=== PATIENT | female | born 1965 | race Caucasian/White ===

== ENCOUNTER 2016-11-24 06:55 | Outpatient (CLI) ==
[2016-11-24 09:16] LABS: BASOPHILS # (AUTO) 0.1 K/uL (0-0.2); BASOPHILS % (AUTO) 1.5 % (0.0-3.0); EOSINOPHILS # (AUTO) 0.1 K/ul (0.0-0.7); EOSINOPHILS % (AUTO) 2.6 % (0.0-7.0); HEMATOCRIT 38.3 % (37.0-47.0); HEMOGLOBIN 13.2 g/dl (12.0-16.0); IMMATURE GRANULOCYTE % (AUTO) 0.4 % (0.0-5.0); LYMPHOCYTES # (AUTO) 1.4 K/uL (0.60-3.4); LYMPHOCYTES % (AUTO) 29.9 (10.0-50.0); MEAN CORPUSCULAR HGB CONC 34.5 (31.8-35.4); MEAN CORPUSCULAR VOLUME 89.9 fl (81.0-99.0); MONOCYTES # (AUTO) 0.3 K/uL (0.4-2.0); MONOCYTES % (AUTO) 6.8 (0-10); NEUTROPHILS # (AUTO) 2.8 K/ul (2.0-6.9); NEUTROPHILS % (AUTO) 58.8; PLATELET COUNT 247 10^3/uL (140-440); RED BLOOD COUNT 4.26 10^6/ul (4.20-5.40); WHITE BLOOD COUNT 4.69 K/ul (4.6-10.2)
[2016-11-24 09:53] LABS: ALBUMIN 4.1 g/dL (3.4-5.0); ALBUMIN/GLOBULIN RATIO 1.28; ANION GAP 12.7; BILIRUBIN,TOTAL 0.52 mg/dL (0.00-1.20); BUN/CREATININE RATIO 13.79; CALCIUM 9.7 mg/dL (8.2-10.2); CHOL/HDL RATIO 3.3 (4.5-5.5); CREATININE 0.87 mg/dL (0.60-1.30); POTASSIUM 4.7 mmol/L (3.5-5.10); TOTAL PROTEIN 7.3 g/dL (6.4-8.2)
== END 2016-11-24 06:56 | disposition home or self-care (01) ==
LOC: CAR 06:55
PROVIDERS: ATTEND Internal Medicine
DX: E78.5 Hyperlipidemia, unspecified (principal); Z00.00 Encounter for general adult medical examination without abnormal findings
CPT/HCPCS: 36415; 80053; 80061; 83036; 84443; 85025; 93005; 93010

== ENCOUNTER 2016-12-11 18:29 | Emergency (ER) ==
[2016-12-11 18:36] VITALS: BP 141/88; TEMP 99.8; BMI 27.4
--- NOTE | 2016-12-11 18:38 | ED.PDOC ---
General ED Provider: Dr. CARLOTTA TREJO Chief Complaint: Bite Stated Complaint: had wasp bite on the left forearm, red, itching Time Seen by Physician: 18:38 Mode of Arrival: Walk-In Information Source: Patient Primary Care Provider: MIGEL TRAN Nursing and Triage Documentation Reviewed and Agree: Yes Skin Complaint Exam - Skin Rash/Itching Complaint/Exam Symptoms Are: Still present Initial Severity: Mild Current Severity: Mild Potential Exposures: Reports: Insect bite Aggravating: Reports: None Alleviating: Reports: None Associated Signs and Symptoms: Denies: Difficulty breathing, Fever, Chills Related History: Similar episode Skin Findings: Present: Urticaria Differential Diagnoses: Other (wasp bite) Review of Systems - Review Of Systems Constitutional: Reports: No symptoms Eyes: Reports: No symptoms Ears, Nose, Mouth, Throat: Reports: No symptoms Respiratory: Reports: No symptoms Cardiac: Reports: No symptoms GI: Reports: No symptoms : Reports: No symptoms Musculoskeletal: Reports: No symptoms Skin: Reports: Rash Neurological: Reports: No symptoms Endocrine: Reports: No symptoms Hematologic/Lymphatic: Reports: No symptoms All Other Systems: Reviewed and Negative Past Medical History - Past Medical History Previously Healthy: Yes Endocrine: Reports: None Cardiovascular: Reports: None Respiratory: Reports: None Hematological: Reports: None Gastrointestinal: Reports: None Genitourinary: Reports: None Neuro/Psych: Reports: None Musculoskeletal: Reports: None Cancer: Reports: None Last Menstrual Period: N/A - Surgical History General Surgical History: Reports: None - Family History Family History: Reports: None - Social History Smoking Status: Never smoker Hx Substance Use: No Alcohol Screening: Occasionally - Immunizations Tetanus Shot up to Date: Yes Physical Exam - Physical Exam Appearance: Well-appearing, No pain distress, Well-nourished Eyes: SOY, EOMI, Conjunctiva clear ENT: Ears normal, Nose normal, Oropharynx normal Respiratory: Airway patent, Breath sounds clear, Breath sounds equal, Respirations nonlabored Cardiovascular: RRR, Pulses normal, No rub, No murmur GI/: Soft, Nontender, No masses, Bowel sounds normal, No Organomegaly Musculoskeletal: Normal strength, ROM intact, No edema, No calf tenderness Skin: Warm, Dry, Normal color Neurological: Sensation intact, Motor intact, Reflexes intact, Cranial nerves intact, Alert, Oriented Psychiatric: Affect appropriate, Mood appropriate Critical Care Note - Critical Care Note Total Time (mins): 0 Course - Course Orders, Labs, Meds: Orders Category Date Time Status Dexamethasone 4 mg/ml Inj [Decadron 4 mg/ml Sdv] MEDS 12/11/16 18:37 Stat 4 mg IM ONCE STA Loratadine [Claritin] MEDS 12/12/16 18:37 Once 10 mg PO ONCE ONE Medications Generic Name Dose Route Start Last Admin Trade Name Freq PRN Reason Stop Dose Admin Loratadine 10 mg 12/12/16 18:37 Claritin PO 12/12/16 18:38 ONCE ONE Discontinued Medications Generic Name Dose Route Start Last Admin Trade Name Freq PRN Reason Stop Dose Admin Dexamethasone Sodium Phosphate 4 mg 12/11/16 18:37 Decadron 4 Mg/Ml Sdv IM 12/11/16 18:38 ONCE STA Vital Signs: Temp Pulse Resp BP Pulse Ox 12/11/16 18:30 99.8 F H 72 20 141/88 H 96 Departure - Departure Time of Disposition: 18:44 Disposition: HOME SELF-CARE Discharge Problem: Wasp sting Qualifiers: Encounter type: initial encounter Injury intent: accidental or unintentional Qualifier Code: (T63.461A) Toxic effect of venom of wasps, accidental ( unintentional), initial encounter Instructions: Insect Bite or Sting (ED) Condition: Stable Pt referred to PMD for follow-up: Yes Additional Instructions: do not scratch tylenol prn Prescriptions: Diphenhydramine HCl [Benadryl] 25 mg PO Q6H #14 capsule Prednisone 10 mg PO BIDWM #14 tablet Allergies/Adverse Reactions: Allergies No Known Allergies Allergy (Unverified 12/11/16 18:37) Home Medications: Ambulatory Orders Diphenhydramine HCl [Benadryl] 25 mg PO Q6H #14 capsule 12/11/16 Prednisone 10 mg PO BIDWM #14 tablet 12/11/16 Disposition Discussed With: Patient, Family
[2016-12-11] MEDS: DECADRON 4 MG/ML SDV IM STA (18:46)
[2016-12-11] MEDS: CLARITIN PO STA (18:46)
[2016-12-11] MEDS ORDERED: CLARITIN ONE (18:48)
[2016-12-12] MEDS ORDERED: CLARITIN PO ONE (18:37)
== END 2016-12-11 19:05 | disposition home or self-care (01) ==
LOC: ED 18:29
DX: T63.461A Toxic effect of venom of wasps, accidental (unintentional), initial encounter (principal); W57.XXXA Bitten or stung by nonvenomous insect and other nonvenomous arthropods, initial encounter
CPT/HCPCS: 96372; 99282

== ENCOUNTER 2017-01-26 09:21 | Outpatient (CLI) ==
[2017-01-26 09:47] LABS: HEMATOCRIT 40.1 % (37.0-47.0); HEMOGLOBIN 13.8 g/dl (12.0-16.0); MEAN CORPUSCULAR HGB CONC 34.4 (31.8-35.4); MEAN CORPUSCULAR VOLUME 90.1 fl (81.0-99.0); PLATELET COUNT 243 10^3/uL (140-440); RED BLOOD COUNT 4.45 10^6/ul (4.20-5.40); WHITE BLOOD COUNT 3.62 K/ul (4.6-10.2)
[2017-01-26 10:08] LABS: ALBUMIN 3.8 g/dL (3.4-5.0); ALBUMIN/GLOBULIN RATIO 1.12; ANION GAP 13.4; BILIRUBIN,TOTAL 0.34 mg/dL (0.00-1.20); BUN/CREATININE RATIO 10.84; CREATININE 0.83 mg/dL (0.60-1.30); POTASSIUM 4.4 mmol/L (3.5-5.10); TOTAL PROTEIN 7.2 g/dL (6.4-8.2)
[2017-01-26 10:33] LABS: BASOPHILS # (AUTO) 0.1 K/uL (0-0.2); BASOPHILS % (AUTO) 1.4 % (0.0-3.0); EOSINOPHILS # (AUTO) 0.1 K/ul (0.0-0.7); EOSINOPHILS % (AUTO) 1.7 % (0.0-7.0); IMMATURE GRANULOCYTE % (AUTO) 0.3 % (0.0-5.0); LYMPHOCYTES % (AUTO) 26.8 (10.0-50.0); MONOCYTES # (AUTO) 0.4 K/uL (0.4-2.0); MONOCYTES % (AUTO) 12.2 (0-10); NEUTROPHILS # (AUTO) 2.1 K/ul (2.0-6.9); NEUTROPHILS % (AUTO) 57.6
[2017-01-26 10:55] LABS: ESR INTERNAL QC INTERNAL QC VALID
[2017-01-26 10:56] LABS: ERYTHROCYTE SEDIMENTATION RATE 32 mm/hr (0-20)
== END 2017-01-26 09:22 | disposition home or self-care (01) ==
LOC: LAB 09:21
PROVIDERS: ATTEND Internal Medicine
DX: R53.83 Other fatigue (principal); R50.9 Fever, unspecified; T14.8 Other injury of unspecified body region; W57.XXXA Bitten or stung by nonvenomous insect and other nonvenomous arthropods, initial encounter
CPT/HCPCS: 36415; 80053; 85007; 85025; 85651; 86617; 87798

== ENCOUNTER 2017-08-30 11:42 | Outpatient (CLI) ==
--- NOTE | 2017-08-30 15:06 | DEXA ---
EXAM: Bone densitometry. History: Menopause Findings: Evaluation of the lumbar spine reveals a total bone mineral density of 1.376 grams per centimeter squ ared with T-score of 1.6. Evaluation of the left hip reveals a total bone mineral density of 1.027 grams per centimeter squared with T-score of 0.2. Evaluation of the right hip reveals a total bone mineral density of 0.947 grams per centimeter square d with T-score of negative 0.5 Impression: Normal bone mineral density of the lumbar spine and bilateral hips
--- NOTE | 2017-08-31 10:00 | MAMMO ---
EXAM: Bilateral digital screening mammogram (2-D and 3-D) History: Screening Comparison: Bilateral mammogram 07/08/2016 Findings: MLO and CC views of bilateral breasts demonstrate scattered fibroglandular breast parenchy ma. CAD was reviewed by the radiologist. Tomosynthesis was performed. Stable benign intramammary l ymph node within the upper-outer quadrant of the right breast. There are no dominant masses, no susp icious microcalcifications and no architectural distortions. Impression: Benign stable mammogram. Recommend followup routine screening mammography in 1 year. BIRADS 2
== END 2017-08-30 11:43 | disposition home or self-care (01) ==
LOC: RAD 11:42
PROVIDERS: ATTEND Nurse Practitioner Obstetrics & Gynecology
DX: Z12.31 Encounter for screening mammogram for malignant neoplasm of breast (principal); Z78.0 Asymptomatic menopausal state; Z01.419 Encounter for gynecological examination (general) (routine) without abnormal findings
CPT/HCPCS: 36415; 77067; 80053; 80061; 81001; 82306; 83036; 84439; 84443; 84479; 85025; 87086

== ENCOUNTER 2018-01-30 08:20 | Outpatient (CLI) | END 2018-01-30 08:21 | disposition home or self-care (01) | LOC: LAB 08:20 | PROVIDERS: ATTEND Internal Medicine | DX: J02.9 Acute pharyngitis, unspecified (principal) | CPT/HCPCS: 87651 ==

== ENCOUNTER 2018-10-27 08:05 | Outpatient (CLI) ==
--- NOTE | 2018-10-27 10:41 | MAMMO ---
EXAM: Bilateral digital screening mammogram (2-D and 3-D) History: Screening Comparison: Bilateral mammogram 08/30/2017 Findings: MLO and CC views of bilateral breasts demonstrate scattered fibroglandular breast parenchy ma. CAD was reviewed by the radiologist. Tomosynthesis was performed. Stable benign intramammary l ymph node within the upper-outer quadrant of the right breast. There are no developing masses, no max spicious microcalcifications and no architectural distortions Impression: Benign stable mammogram. Recommend followup routine screening mammography in 1 year. BIRADS 2, benign
== END 2018-10-27 08:06 | disposition home or self-care (01) ==
LOC: RAD 08:05
PROVIDERS: ATTEND Nurse Practitioner Obstetrics & Gynecology
DX: Z12.31 Encounter for screening mammogram for malignant neoplasm of breast (principal); Z01.419 Encounter for gynecological examination (general) (routine) without abnormal findings
CPT/HCPCS: 36415; 80053; 80061; 81001; 82306; 83036; 84439; 84443; 84479; 84480; 85025; 87086

== ENCOUNTER 2018-11-30 07:24 | Outpatient (CLI) ==
--- NOTE | 2018-12-01 14:36 | ECHO2D ---
Date of Exam: 11/30/18 Ordering Physician: DR. MIGEL TRAN Room #: OP Reason for Echo: SOB, HTN M-Mode Normal Adult Results LV Dimensions Normal Adult Results AoV Opening excursions >1.6 >1.6 LVEDD-base- 3.5-5.8 4.1 Ao root dimensions 2.0-3.7 2.7 LVESD-base- 3.1-4.6 L. Atrium dimensions 1.9-3.8 3.6 Post. Wall thickness 0.8-1.1 0.9 IV septum (thickness) 0.7-1.2 1.0 Post. Wall excursion 0.72-1.3 NORMAL Septal motion NORMAL Systolic motion R. Ventricular cavity 1.5-2.0 NORMAL LVEF 60% 55% Paradoxical septal wall motion NORMAL 2-D : 2-D M Mode Echocardiogram was performed using apical four chamber and left parasternal long and short axis views. Mitral, tricuspid and aortic valves appear to be normal. Contractility of the left ventricle seems to be normal, so is the cavity size. Left atrial cavity size and aortic root appear to be normal. There is no pericardial effusion. There is no thrombus noted in the left ventricular or left aortic cavity. No mitral valve prolapse noted. M-MODE: MV: NORMAL AV: NORMAL TV: NORMAL PV: CHAMBER SIZE: NORMAL WALL MOTION: NORMAL PERICARDIUM: NORMAL INTERPRETATION: 1. NORMAL 2 "D" "M" MODE ECHO MTDD
== END 2018-11-30 07:25 | disposition home or self-care (01) ==
LOC: CAR 07:24
PROVIDERS: ATTEND Internal Medicine
DX: R06.02 Shortness of breath (principal)

== ENCOUNTER 2019-03-02 09:34 | Outpatient (CLI) | END 2019-03-02 09:35 | disposition home or self-care (01) | LOC: LAB 09:34 | PROVIDERS: ATTEND Internal Medicine | DX: E78.5 Hyperlipidemia, unspecified (principal); I10 Essential (primary) hypertension; Z79.899 Other long term (current) drug therapy | CPT/HCPCS: 36415; 80053; 80061; 83036; 84443; 85025 ==